=== PATIENT | female | born 2000 | race Caucasian/White ===

== ENCOUNTER 2021-09-05 14:55 | Emergency (ER) | payer OTHER, SELFPAY ==
--- NOTE | 2021-09-05 | ECG_ITS ---
Test Reason : CP Blood Pressure : / mmHG Vent. Rate : 051 BPM Atrial Rate : 051 BPM P-R Int : 130 ms QRS Dur : 082 ms QT Int : 428 ms P-R-T Axes : 065 071 050 degrees QTc Int : 394 ms Sinus bradycardia Otherwise normal ECG No previous ECGs available Referred By: Generic ED Physician Electronically Signed By:KYLE FLORES MD
--- NOTE | ~2021-09-05 | XR_ITS ---
EXAMINATION: XR CHEST CLINICAL INFORMATION: Chest pain COMPARISON: None TECHNIQUE: Frontal view of the chest was obtained. 3:31 PM FINDINGS: No significant abnormality is noted involving the heart, lungs, mediastinum, bony thorax or soft tissues. XR/XR chest 1V IMPRESSION: Unremarkable examination.
[2021-09-05 14:58] VITALS: PULSE 61; RESP 18; TEMP 36.5; O2SAT 99; BMI 18.8
[2021-09-05 17:10] LABS: MANUAL DIFF FLAG NO
[2021-09-05 17:12] LABS: Basophils Percent Auto 0.6 % (0-2); Eosinophils Absolute Auto 0.1 X10*3/uL (0.0-0.4); Eosinophils Percent Auto 2.5 % (0-4); Hematocrit 33.6 % (37.0-47.0); Hemoglobin 10.8 g/dl (12.0-16.0); Imm Gran Abs Auto 0.01 X10*3/uL (0.00-0.03); Imm Gran Pct Auto 0.2 % (0.0-0.4); Lymphocytes Absolute Auto 2.2 X10*3/uL (1.2-4.9); Lymphocytes Percent Auto 42.3 % (20-40); Mean Corpuscular HGB Conc 32.1 g/dl (31.0-35.0); Mean Corpuscular Hemoglobin 26.9 pg (27.0-33.0); Mean Corpuscular Volume 83.8 fL (80.0-98.0); Mean Platelet Volume 10.5 fL (9.4-12.3); Monocytes Absolute Auto 0.5 X10*3/uL (0.1-1.2); Neutrophils Absolute Auto 2.3 x10*3/uL (2.0-8.3); Neutrophils Percent Auto 44.4 % (45-73); Platelet Count 285 X10*3/uL (160-400); Red Blood Count 4.01 X10*6/uL (4.20-5.50); Red Cell Distribution Width 15.2 % (11.0-16.0); White Blood Count 5.2 X10*3/uL (4.8-10.8)
[2021-09-05 17:30] LABS: Alanine Aminotransferase 14 U/L (0-31); Albumin Level 4.2 g/dL (3.5-5.0); Alkaline Phosphatase 71 U/L (39-117); Anion Gap 11 (12-20); Aspartate Amino Transferase 19 U/L (5-31); Bilirubin Total 0.4 mg/dL (0.0-1.0); Blood Urea Nitrogen 7 mg/dL (9-16); Carbon Dioxide 26 mmol/L (22-29); Chloride 109 mmol/L (96-108); Creatinine Clr Calc Pharmacy 89.1; Estimated Glomerular Filt Rate > 60; Glucose Random 89 mg/dL (60-115); Potassium 3.8 mmol/L (3.3-5.1); Sodium 142 mmol/L (135-145); Total Protein 7.6 g/dL (6.5-8.0)
[2021-09-05 17:34] LABS: Troponin-I High Sensitivity < 3.5 ng/L (<3.5-17.0)
--- NOTE | 2021-09-05 19:38 | ED_ITS ---
HPI - Chest Pain General Chief Complaint: Chest Pain <SULEMAN Trejo - Last Filed: 09/05/21 21:07> Stated Complaint: chest pain <SULEMAN Trejo Last Filed: 09/05/21 21:07> Time Seen by Provider: 09/05/21 19:38 <SULEMAN Trejo Last Filed: 09/05/21 21:07> Source: patient <SULEMAN Trejo Last Filed: 09/05/21 21:07> Mode of arrival: ambulatory <SULEMAN Trejo Last Filed: 09/05/21 21:07> Limitations: no limitations <SULEMAN Trejo Last Filed: 09/05/21 21:07> History of Present Illness HPI narrative: This is a 20-year-old female no significant medical history was presenting to the emergency department with episodes of intermittent chest pain over the past week. Patient tells me that these episodes come and go and they seem to be precipitated by stress, at times these episodes are accompanied by shortness of breath however she is not experiencing shortness of breath at this time. She tells me that deep breathing also worsens the chest pain. Patient tells me that she feels like anxiety is a component. She tells me she is under lot of stress she recently got kicked out of her house, she is living in a senior living and she had a miscarriage last week. Patient denies recent illness. Patient has no sig nificant personal or family cardiac history. No history of PE/DVT. Patient is not on control, denies long travel. Denies fevers, chills, nausea, vomiting, abdominal pain, weakness, headache, dizziness, leg pain/swelling <SULEMAN Trejo Last Filed: 09/05/21 21:07> MD complaint: chest pain <SULEMAN Trejo Last Filed: 09/05/21 21:07> Onset (ago): week(s) (1) <SULEMAN Terjo Last Filed: 09/05/21 21:07> Timing of current episode: episodic <SULEMAN Trejo Last Filed: 09/05/21 21:07> Prior episodes: Yes <SULEMAN Trejo - Last Filed: 09/05/21 21:07> Onset: during rest <SULEMAN Trejo - Last Filed: 09/05/21 21:07> Pain location: substernal <SULEMAN Trejo - Last Filed: 09/05/21 21:07> Pain radiation: none <SULEMAN Trejo - Last Filed: 09/05/21 21:07> Severity: moderate <SULEMAN Trejo - Last Filed: 09/05/21 21:07> Quality: sharp <SULEMAN Trejo - Last Filed: 09/05/21 21:07> Relieving factors: nothing <SULEMAN Trejo - Last Filed: 09/05/21 21:07> Exacerbating factors: stress <SULEMAN Trejo - Last Filed: 09/05/21 21:07> Treatment prior to arrival: none <SULEMAN Trejo - Last Filed: 09/05/21 21:07> Related Data Allergies/Adverse Reactions: Allergies Allergy/AdvReac Type Severity Reaction Status Date / Time Unable to Assess Allergy Unverified 09/05/21 19:45 <SULEMAN Trejo - Last Filed: 09/05/21 21:07> Review of Systems Review of Systems: Constitutional : No Weight loss, No Fever, No Chills, No Fatigue, No Malaise ENT/Mouth : No sore throat, No Rhinorrhea Eyes: No Eye Pain, No Swelling, No Redness Cardiovascular : + Chest Pain, No SOB, No Dyspnea on Exertion, No Orthopnea, No Edema, No Palpitations Respiratory : No Cough, No Sputum, No Wheezing Gastrointestinal : No Nausea, No Vomiting, No Diarrhea, No Constipation, No abdominal Pain, No Hematochezia, No Melena Genitourinary : No Dysuria, No Urinary Frequency, No Hematuria, Musculoskeletal : No joint pain, No Myalgias, No Joint Swelling Skin : No Skin Lesions, No rash Neuro : No Weakness, No Numbness, No Dizziness, No Headache Psych : + Anxiety/Panic, No Depression All other systems reviewed and are negative <SULEMAN Trejo - Last Filed: 09/05/21 21:07> Yes all other systems are reviewed and are negative <SULEMAN Trejo - Last Filed: 09/05/21 21:07> [facility] Past Medical History Attestation statement: The following information was validated with the patient. <SULEMAN Trejo - Last Filed: 09/05/21 21:07> Source: old records reviewed and nursing notes reviewed <SULEMAN Trejo - Last Filed: 09/05/21 21:07> Social History Social History: Social History Advance Directives: No Advance Directives Information Provided: No <SULEMAN Trejo - Last Filed: 09/05/21 21:07> Physical Exam Vital Signs: Vital Signs: Last Vital Signs Temp 97.7 F 09/05/21 14:58 Pulse 56 09/05/21 20:56 Resp 16 09/05/21 20:56 BP 105/65 09/05/21 20:56 Pulse Ox 100 09/05/21 20:56 BMI result Body Mass Index 18.8 Vital signs stable <SULEMAN Trejo - Last Filed: 09/05/21 21:07> Appearance: Alert.? Oriented X3.? No acute distress.? Head: Normocephalic, atraumatic, no step-offs or deformities Eyes: Pupils equal, round and reactive to light.? ENT: Pharynx normal.? Neck: Normal inspection.? Neck supple.? CVS: Normal heart rate and rhythm.? Pulses normal.? Respiratory: No respiratory distress.? Breath sounds normal.? Abdomen: Soft and nontender.? Skin: Skin warm and dry.? Normal skin color.? Normal skin turgor.? Extremities: No lower extremity edema.? No calf ttp, neagtive spencer b/l. 5/5 strength to bilateral upper and lower extremities Back: No midline tenderness, no C-spine tenderness, full range of motion, no CVA tenderness bilaterally Neuro: Oriented X 3.? No motor deficit.? No sensory deficit. CN 2-12 intact <SULEMAN Trejo - Last Filed: 09/05/21 21:07> Course Reevaluation(s) Reevaluation #1: CBC with a normocytic anemia. Chemistry with no electrolyte abnormalities requiring intervention. Troponin is negative. EKG shows sinus bradycardia with a rate of 51, no signs of ischemia, unlikely ACS. Chest x-ray is unremarkable. D-dimer pending. <SULEMAN Trejo - Last Filed: 09/05/21 21:07> Time: 19:42 <SULEMAN Trejo - Last Filed: 09/05/21 21:07> Reevaluation #2: D-dimer negative. Unlikely PE/DVT likely anxiety. Wanted to keep the patient here little bit longer for observation however she tells me she has to leave because she has work. At this time chest pain likely secondary to anxiety. Unlikely ACS, PE. Patient will be discharged home with PCP and cardiology follow-up. At this time I feel comfortable discharge home, patient feeling much better at time of discharge with stable vitals. <SULEMAN Trejo Last Filed: 09/05/21 21:07> Time: 21:05 <SULEMAN Trejo - Last Filed: 09/05/21 21:07> MDM - Chest Pain MDM Narrative Medical decision making narrative: 1938 20-year-old female presents the emergency department with complaints of intermittent substernal chest pain that is associated with stressful situations, worsened by deep breathing this has been going on for 1 week worsening. Physical examination benign. Plan at this time is EKG, troponin, basic labs, chest x-ray, dimer This patient is status post miscarriage will obtain a D-dimer to rule out PE although unlikely, at this time patient is PERC negative. Based off history and physical examination very low suspicion for PE, PERC negative. Unlikely that this is ACS however EKG, troponin will be obtained. Likely chest pain secondary to anxiety. <SULEMAN Trejo Last Filed: 09/05/21 21:07> Medical Records Data Attestation: I reviewed the patient's medical records. <SULEMAN Trejo Last Filed: 09/05/21 21:07> Lab Data Attestation: I reviewed the patient's lab results. <SULEMAN Trejo Last Filed: 06/01/22 21:07> Result diagrams: : 09/05/21 17:03 09/05/21 17:03 <SULEMAN Trejo - Last Filed: 09/05/21 21:07> Labs: Lab Results 09/05/21 09/05/21 09/05/21 Range/Units 17:03 17:03 17:03 WBC 5.2 (4.8-10.8) X10*3/uL RBC 4.01 L (4.20-5.50) X10*6/uL Hgb 10.8 L (12.0-16.0) g/dl Hct 33.6 L (37.0-47.0) % MCV 83.8 (80.0-98.0) fL MCH 26.9 L (27.0-33.0) pg MCHC 32.1 (31.0-35.0) g/dl RDW 15.2 (11.0-16.0) % Plt Count 285 (160-400) X10*3/uL MPV 10.5 (9.4-12.3) fL Immature Gran % (Auto) 0.2 (0.0-0.4) % Neut % (Auto) 44.4 L (45-73) % Lymph % (Auto) 42.3 H (20-40) % Mcintosh % (Auto) 10.0 (2-11) % Eos % (Auto) 2.5 (0-4) % Baso % (Auto) 0.6 (0-2) % Lymph # (Auto) 2.2 (1.2-4.9) X10*3/uL Mcintosh # (Auto) 0.5 (0.1-1.2) X10*3/uL Eos # (Auto) 0.1 (0.0-0.4) X10*3/uL Baso # (Auto) 0.0 (0.0-0.2) X10*3/uL Abs Immat Gran (auto) 0.01 (0.00-0.03) X10*3/uL Absolute Neuts (auto) 2.3 (2.0-8.3) x10*3/uL Absolute Nucleated RBC 0.000 (0.0-0.012) X10*3/uL Nucleated RBC % (auto) 0.0 (0.0-0.2) /100WBC D-Dimer High Sensitivty NG/ML Sodium 142 (135-145) mmol/L Potassium 3.8 (3.3-5.1) mmol/L Chloride 109 H (96-108) mmol/L Carbon Dioxide 26 (22-29) mmol/L Anion Gap 11 L (12-20) BUN 7 L (9-16) mg/dL Creatinine 0.80 (0.5-1.4) mg/dL Estim Creat Clear Calc 89.1 Estimated GFR > 60 Random Glucose 89 (60-115) mg/dL Calcium 10.0 (8.4-10.2) mg/dL Total Bilirubin 0.4 (0.0-1.0) mg/dL AST 19 (5-31) U/L ALT 14 (0-31) U/L Alkaline Phosphatase 71 (39-117) U/L Troponin I High Sens < 3.5 (<3.5-17.0) ng/L Total Protein 7.6 (6.5-8.0) g/dL Albumin 4.2 (3.5-5.0) g/dL 09/05/21 Range/Units 20:38 WBC (4.8-10.8) X10*3/uL RBC (4.20-5.50) X10*6/uL Hgb (12.0-16.0) g/dl Hct (37.0-47.0) % MCV (80.0-98.0) fL MCH (27.0-33.0) pg MCHC (31.0-35.0) g/dl RDW (11.0-16.0) % Plt Count (160-400) X10*3/uL MPV (9.4-12.3) fL Immature Gran % (Auto) (0.0-0.4) % Neut % (Auto) (45-73) % Lymph % (Auto) (20-40) % Mcintosh % (Auto) (2-11) % Eos % (Auto) (0-4) % Baso % (Auto) (0-2) % Lymph # (Auto) (1.2-4.9) X10*3/uL Mcintosh # (Auto) (0.1-1.2) X10*3/uL Eos # (Auto) (0.0-0.4) X10*3/uL Baso # (Auto) (0.0-0.2) X10*3/uL Abs Immat Gran (auto) (0.00-0.03) X10*3/uL Absolute Neuts (auto) (2.0-8.3) x10*3/uL Absolute Nucleated RBC (0.0-0.012) X10*3/uL Nucleated RBC % (auto) (0.0-0.2) /100WBC D-Dimer High Sensitivty < 150 NG/ML Sodium (135-145) mmol/L Potassium (3.3-5.1) mmol/L Chloride (96-108) mmol/L Carbon Dioxide (22-29) mmol/L Anion Gap (12-20) BUN (9-16) mg/dL Creatinine (0.5-1.4) mg/dL Estim Creat Clear Calc Estimated GFR Random Glucose (60-115) mg/dL Calcium (8.4-10.2) mg/dL Total Bilirubin (0.0-1.0) mg/dL AST (5-31) U/L ALT (0-31) U/L Alkaline Phosphatase (39-117) U/L Troponin I High Sens (<3.5-17.0) ng/L Total Protein (6.5-8.0) g/dL Albumin (3.5-5.0) g/dL <SULEMAN Trejo - Last Filed: 09/05/21 21:07> ECG Data ECG #1: Attestation: I personally reviewed and interpreted this ECG as follows: <SULEMAN Trejo - Last Filed: 09/05/21 21:07> ECG interpretation date: 09/05/21 <SULEMAN Trejo - Last Filed: 09/05/21 21:07> ECG interpretation time: 19:42 <SULEMAN Trejo - Last Filed: 09/05/21 21:07> Prior ECG tracings: not available for review <SULEMAN Trejo - Last Filed: 09/05/21 21:07> Interpretation: Ventricular rate of 51, [place] normal, QRS normal, QT/QTC normal. EKG shows sinus bradycardia, no ST elevations or inversions concerning for ischemia. No previous EKGs to compare with. <SULEMAN Trejo - Last Filed: 09/05/21 21:07> Critical Care Time Critical Care Time Critical Care Time: No <SULEMAN Trejo Last Filed: 09/05/21 21:07> Discharge Plan Discharge Clinical Impression: Chest pain not due to acute coronary syndrome, Anxiety <SULEMAN Trejo Last Filed: 09/05/21 21:07> Patient Disposition: Home, Self-Care <SULEMAN Trejo Last Filed: 09/05/21 21:07> Instructions: Anxiety (ED), Chest Wall Pain (ED) <SULEMAN Trejo Last Filed: 09/05/21 21:07> Additional Instructions: Take your medications as prescribed. If you were prescribed antibiotics today, it is important that you take your medication to their entirety, do not skip any doses, do not finish them early. Follow-up with your primary care provider this week. If pain continues in the next week or 2, follow-up with Cardiology. Return to the emergency department with new or worsening symptoms. Such as fevers, chills, chest pain, shortness of breath, nausea, vomiting, dizziness, headache, vision changes, lethargy, weakness, leg swelling In case of emergency call 911 <SULEMAN Trejo - Last Filed: 09/05/21 21:07> Referrals: Lucretia Murphy [Primary Care Provider] - 2 days Shaheed Valdez MD [Physician] - 2 weeks <SULEMAN Trejo Last Filed: 09/05/21 21:07> Stand Alone Forms: Work/School Release <SULEMAN Trejo Last Filed: 09/05/21 21:07> Interventions: ED Discharge Assessment Last Done: 09/05/21 21:07 <SULEMAN Trejo Last Filed: 09/05/21 21:07> Discharge Date/Time: 09/05/21 21:08 <SULEMAN Trejo Last Filed: 09/05/21 21:07>
[2021-09-05 20:55] LABS: D Dimer High Sensitivity < 150 NG/ML
[2021-09-05 20:56] VITALS: BP 105/65; PULSE 56; RESP 16; O2SAT 100
== END 2021-09-05 21:08 | disposition home or self-care (01) ==
PROVIDERS: Physician Assistant; Emergency Provider Emergency Medicine; PCP Internal Medicine
DX: R07.9 Chest pain, unspecified (principal); F41.9 Anxiety disorder, unspecified; D64.9 Anemia, unspecified; Z59.01 Sheltered homelessness
CPT/HCPCS: 36415; 71045; 80053; 84484; 85025; 85379; 93005; 99282; 99283

== ENCOUNTER 2022-02-01 15:51 | Emergency (ER) | payer OTHER, SELFPAY ==
--- NOTE | ~2022-02-01 | US_ITS ---
EXAMINATION: US OBSTETRICAL ULTRASOUND CLINICAL INFORMATION: Bleeding 9 weeks COMPARISON: None. Real-time imaging by the pullman car clerk. Findings; The endometrial thickness is measuring approximately 7 mm. Characterized by mixed echogenicity. Some linear increased echogenicity with surrounding decreased echogenicity. There is no convincing evidence for a gestational sac here. The right ovary is 3.5 x 2.6 x 2.4 cm. Left ovary is 3.1 x 1.2 x 1.1 cm. The ovaries appear to be within normal limits. No significant free fluid is identified. US/US OB pelvic and transvaginal IMPRESSION: No evidence of a gestational sac or pole at this time. The endometrial thickness is mixed echogenicity measuring approximately 7 mm.
[2022-02-01 16:00] VITALS: BP 95/62; PULSE 84; RESP 18; TEMP 36.4; O2SAT 99; BMI 18.1
--- NOTE | 2022-02-01 16:31 | ED_ITS ---
HPI - General Chief complaint: Vaginal Bleeding Stated complaint: /blood clots/vomiting Time Seen by Provider: 02/01/22 16:29 Source: patient Mode of arrival: ambulatory Limitations: no limitations History of Present Illness HPI Narrative: 21-year-old female presents for 3 days of vaginal bleeding with blood clots and suprapubic abdominal pain. States to be 9 weeks . She reports going through a pad every 45 minutes. She does not report fevers or chills, adnexal pain, or trauma. MD Complaint: vaginal bleeding Onset (ago): day(s) (3) Pain Consistency: intermittent Location: pelvis Severity: moderate Severity scale (1-10): 5 Quality: Cramping Radiation: pelvis Relieving factors: none Exacerbating factors: movement Associated symptoms: vaginal bleeding and abdominal pain Vaginal discharge: none Vaginal bleeding: light and clots Patient : Yes OB History - Current : no complications OB History - Previous Pregnancies: miscarriage care: followed by OB Related Data : 2 Para: 0 Total number of abortions (spontaneous and elective): 1 Allergies Allergy/AdvReac Type Severity Reaction Status Date / Time Unable to Assess Allergy Unverified 09/05/21 19:45 Review of Systems Review of Systems: Constitutional: No Fever, No Chills ENT/Mouth: No sore throat, No Rhinorrhea Eyes: No Eye Pain, No Redness Cardiovascular: No Chest Pain, No SOB Respiratory: No Cough, No Sputum, No Wheezing Gastrointestinal: positive Nausea, No Vomiting, No Diarrhea, positive abdominal pain Genitourinary: positive irregular bleeding, No Dysuria, No Urinary Frequency, positive pelvic pain Musculoskeletal: No Myalgias Skin: No rash Neuro: No Weakness, No Headache Psych: No Anxiety/Panic, No Depression Heme/Lymph: No bruising, No Lymphadenopathy Endocrine: No Polyuria, No Polydipsia Yes all other systems are reviewed and are negative PMFSH Past Medical History Attestation statement: The following information was validated with the patient. Source: old records reviewed : 2 Para: 0 Total number of abortions (spontaneous and elective): 1 Social History Social History Advance Directives: No Patient : Yes Physical Exam Vital Signs: Vital Signs: Last Vital Signs Temp 98.7 F 02/01/22 19:33 Pulse 63 02/01/22 19:33 Resp 18 02/01/22 19:33 BP 97/59 L 02/01/22 19:33 Pulse Ox 99 02/01/22 19:33 O2 Del Method 02/01/22 19:33 BMI result Body Mass Index 18.1 Appearance: Alert. Oriented X3. No acute distress. Eyes: Pupils equal, round and reactive to light. ENT: Pharynx normal. Neck: Normal inspection. Neck supple. CVS: Normal heart rate and rhythm. Pulses normal. Respiratory: No respiratory distress. Breath sounds normal. Abdomen: Soft and nontender. Skin: Skin warm and dry. Normal skin color. Normal skin turgor. Extremities: No lower extremity edema. Gait well balanced well coordinated. Neuro: No motor deficit. No sensory deficit. Cranial nerves 2-12 intact. Course Course Course Narrative: 21-year-old female presents for evaluation for abnormal vaginal bleeding at 9 weeks of . She has had a prior stillborn, and no other pregnancies. She does not report any trauma, fevers or chills. Her bleeding started 3 days ago, started with cramping and suprapubic abdominal pain. She is going through a pad every 45 minutes. Will order labs, AB0, pelvic ultrasound. 16:45 pelvic exam completed with ED air conditioning technician at bedside as warehouse logistics manager. Patient does not have any cervical motion tenderness, no adnexal tenderness. Scant dark red blood in the vaginal vault. No lesions wounds or abrasions noted. Cervix with healthy, pink, nonfriable. Patient tolerated procedure well. HCG is less than 2, pelvic ultrasound has been canceled. Patient will be discharged home with miscarriage instructions, and follow-up with primary care and/or OBGYN. MDM - OB/Uterine Contractions MDM Narrative Medical decision making narrative: Miscarriage Medical Records Attestation: I reviewed the patient's medical records. Lab Data Attestation: I reviewed the patient's lab results. Result diagrams: 02/01/22 17:06 02/01/22 17:06 Labs: Lab Results 02/01/22 02/01/22 02/01/22 Range/Units 17:06 17:06 17:06 WBC 4.8 (4.8-10.8) X10*3/uL RBC 4.35 (4.20-5.50) X10*6/uL Hgb 12.0 (12.0-16.0) g/dl Hct 36.5 L (37.0-47.0) % MCV 83.9 (80.0-98.0) fL MCH 27.6 (27.0-33.0) pg MCHC 32.9 (31.0-35.0) g/dl RDW 14.8 (11.0-16.0) % Plt Count 258 (160-400) X10*3/uL MPV 10.7 (9.4-12.3) fL Immature Gran % (Auto) 0.6 H (0.0-0.4) % Neut % (Auto) 47.5 (45-73) % Lymph % (Auto) 40.3 H (20-40) % Woods % (Auto) 8.5 (2-11) % Eos % (Auto) 2.3 (0-4) % Baso % (Auto) 0.8 (0-2) % Lymph # (Auto) 2.0 (1.2-4.9) X10*3/uL Woods # (Auto) 0.4 (0.1-1.2) X10*3/uL Eos # (Auto) 0.1 (0.0-0.4) X10*3/uL Baso # (Auto) 0.0 (0.0-0.2) X10*3/uL Abs Immat Gran (auto) 0.03 (0.00-0.03) X10*3/uL Absolute Neuts (auto) 2.3 (2.0-8.3) x10*3/uL Absolute Nucleated RBC 0.000 (0.0-0.012) X10*3/uL Nucleated RBC % (auto) 0.0 (0.0-0.2) /100WBC Sodium 141 (135-145) mmol/L Potassium 3.7 (3.3-5.1) mmol/L Chloride 107 (96-108) mmol/L Carbon Dioxide 25 (22-29) mmol/L Anion Gap 13 (12-20) BUN 6 L (9-16) mg/dL Creatinine 0.77 (0.5-1.4) mg/dL Estim Creat Clear Calc 88.4 Estimated GFR > 60 Random Glucose 75 (60-115) mg/dL Calcium 9.4 (8.4-10.2) mg/dL Beta HCG, Quant < 2 mIU/mL Influenza Type A (PCR) (Negative) Influenza Type B (PCR) (Negative) RSV RNA Qual (PCR) (Negative) SARS-CoV-2 RNA (RT-PCR) (Negative) Blood Type O Positive 02/01/22 Range/Units 17:06 WBC (4.8-10.8) X10*3/uL RBC (4.20-5.50) X10*6/uL Hgb (12.0-16.0) g/dl Hct (37.0-47.0) % MCV (80.0-98.0) fL MCH (27.0-33.0) pg MCHC (31.0-35.0) g/dl RDW (11.0-16.0) % Plt Count (160-400) X10*3/uL MPV (9.4-12.3) fL Immature Gran % (Auto) (0.0-0.4) % Neut % (Auto) (45-73) % Lymph % (Auto) (20-40) % Woods % (Auto) (2-11) % Eos % (Auto) (0-4) % Baso % (Auto) (0-2) % Lymph # (Auto) (1.2-4.9) X10*3/uL Woods # (Auto) (0.1-1.2) X10*3/uL Eos # (Auto) (0.0-0.4) X10*3/uL Baso # (Auto) (0.0-0.2) X10*3/uL Abs Immat Gran (auto) (0.00-0.03) X10*3/uL Absolute Neuts (auto) (2.0-8.3) x10*3/uL Absolute Nucleated RBC (0.0-0.012) X10*3/uL Nucleated RBC % (auto) (0.0-0.2) /100WBC Sodium (135-145) mmol/L Potassium (3.3-5.1) mmol/L Chloride (96-108) mmol/L Carbon Dioxide (22-29) mmol/L Anion Gap (12-20) BUN (9-16) mg/dL Creatinine (0.5-1.4) mg/dL Estim Creat Clear Calc Estimated GFR Random Glucose (60-115) mg/dL Calcium (8.4-10.2) mg/dL Beta HCG, Quant mIU/mL Influenza Type A (PCR) NEGATIVE (Negative) Influenza Type B (PCR) NEGATIVE (Negative) RSV RNA Qual (PCR) NEGATIVE (Negative) SARS-CoV-2 RNA (RT-PCR) NEGATIVE (Negative) Blood Type Discharge Plan Discharge Clinical Impression: Vaginal bleeding, Missed Patient Disposition: Home, Self-Care Instructions: Miscarriage (ED) Additional Instructions: You were evaluated for vaginal bleeding during 1st trimester . You do not have a viable intrauterine at this time. Your influenza COVID RSV tests are negative. Your blood type is O-positive. Please follow-up with primary care and or OBGYN as needed. Thank you for choosing this emergency department for evaluation. Please follow-up with primary care physician as needed. Return to the emergency de partment for any new, concerning, or worsening symptoms. Interventions: ED Discharge Assessment Last Done: 02/01/22 19:38 Discharge Date/Time: 02/01/22 19:40
[2022-02-01 17:13] LABS: MANUAL DIFF FLAG NO
[2022-02-01 17:20] VITALS: BP 107/61; PULSE 63; RESP 18; TEMP 36.4; O2SAT 98
[2022-02-01] MEDS: 0.9 % Sodium Chloride 1,000 ML 999 ML IVCONT (17:27)
[2022-02-01 17:28] LABS: Basophils Percent Auto 0.8 % (0-2); Eosinophils Absolute Auto 0.1 X10*3/uL (0.0-0.4); Eosinophils Percent Auto 2.3 % (0-4); Hematocrit 36.5 % (37.0-47.0); Imm Gran Abs Auto 0.03 X10*3/uL (0.00-0.03); Imm Gran Pct Auto 0.6 % (0.0-0.4); Lymphocytes Percent Auto 40.3 % (20-40); Mean Corpuscular HGB Conc 32.9 g/dl (31.0-35.0); Mean Corpuscular Hemoglobin 27.6 pg (27.0-33.0); Mean Corpuscular Volume 83.9 fL (80.0-98.0); Mean Platelet Volume 10.7 fL (9.4-12.3); Monocytes Absolute Auto 0.4 X10*3/uL (0.1-1.2); Monocytes Percent Auto 8.5 % (2-11); Neutrophils Absolute Auto 2.3 x10*3/uL (2.0-8.3); Neutrophils Percent Auto 47.5 % (45-73); Platelet Count 258 X10*3/uL (160-400); Red Blood Count 4.35 X10*6/uL (4.20-5.50); Red Cell Distribution Width 14.8 % (11.0-16.0); White Blood Count 4.8 X10*3/uL (4.8-10.8)
--- NOTE | 2022-02-01 17:29 | PC.NURSE ---
pt. complaints of vag bleeding with large clots for the past 2 days. 12 weeks . pelvic pain 11/14. BP107/. going to ultrasound. IV in place and NS running
[2022-02-01 17:35] LABS: Anion Gap 13 (12-20); Blood Urea Nitrogen 6 mg/dL (9-16); Calcium 9.4 mg/dL (8.4-10.2); Carbon Dioxide 25 mmol/L (22-29); Chloride 107 mmol/L (96-108); Creatinine Clr Calc Pharmacy 88.4; Estimated Glomerular Filt Rate > 60; Glucose Random 75 mg/dL (60-115); Potassium 3.7 mmol/L (3.3-5.1); Sodium 141 mmol/L (135-145)
[2022-02-01 17:43] LABS: HCG Quantitative < 2 mIU/mL
[2022-02-01 17:59] LABS: Influenza A PCR NEGATIVE (Negative); Influenza B PCR NEGATIVE (Negative); Resp Syncy Virus RNA Qual PCR NEGATIVE (Negative); SARS COV2 PCR INHOUSE NEGATIVE (Negative)
[2022-02-01 18:36] VITALS: BP 105/67; PULSE 59; RESP 16; TEMP 37; O2SAT 100
[2022-02-01] MEDS: diphenhydrAMINE HCL 50 MG/ML VIAL 12.5 MG IVPUSH (19:05)
[2022-02-01] MEDS: Metoclopramide HCl 10 MG/2 ML VIAL IVPUSH (19:05)
[2022-02-01 19:33] VITALS: BP 97/59; PULSE 63; RESP 18; TEMP 37.1; O2SAT 99
[2022-02-02 05:03] LABS: CT PCR NOT DETECTED (Not Detect.); NG PCR NOT DETECTED (Not Detect.)
[2022-02-02 15:04] LABS: BV Int Neg Control Negative (Negative); BV Int Pos Control Positive (Positive)
== END 2022-02-01 19:40 | disposition home or self-care (01) ==
PROVIDERS: Nurse Practitioner Family; Emergency Provider Emergency Medicine; PCP Internal Medicine
DX: O02.1 Missed abortion (principal); Z20.822 Contact with and (suspected) exposure to COVID-19; Z79.899 Other long term (current) drug therapy
CPT/HCPCS: 0241U; 36415; 76801; 76817; 80048; 84702; 85025; 86900; 86901; 87480; 87491; 87510; 87591; 87660; 96361; 96374; 96375; 99284; J1200; J2765

== ENCOUNTER 2022-03-15 02:54 | Emergency (ER) | payer OTHER, SELFPAY ==
[2022-03-15 02:57] VITALS: BP 139/79; PULSE 97; RESP 20; TEMP 36.7; O2SAT 100; BMI 19.7
== END 2022-03-15 06:05 | disposition left against medical advice (07) ==
PROVIDERS: Emergency Provider Emergency Medicine
DX: R06.02 Shortness of breath (principal)
CPT/HCPCS: 99281

== ENCOUNTER 2022-04-23 20:14 | Emergency (ER) | payer OTHER, SELFPAY ==
[2022-04-23 20:56] VITALS: BP 95/52; PULSE 90; RESP 16; TEMP 36.3; O2SAT 99; BMI 18.3
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
[2022-04-23] MEDS: Ibuprofen 600 MG TABLET PO (23:47)
[2022-04-23] MEDS: Silver Sulfadiazine 1 % Cream 20 GM TUBE 1 APPL TOPICAL (23:48)
== END 2022-04-24 | disposition home or self-care (01) ==
PROVIDERS: Emergency Provider Internal Medicine
DX: T23.112A Burn of first degree of left thumb (nail), initial encounter (principal); T31.0 Burns involving less than 10% of body surface; T79.9XXA Unspecified early complication of trauma, initial encounter; X12.XXXA Contact with other hot fluids, initial encounter; Y93.9 Activity, unspecified; Y92.9 Unspecified place or not applicable; Y99.9 Unspecified external cause status
CPT/HCPCS: 16000; 99283

== ENCOUNTER 2022-08-22 17:47 | Emergency (ER) | payer OTHER, SELFPAY ==
--- NOTE | ~2022-08-22 | US_ITS ---
EXAMINATION: US ABDOMEN LIMITED CLINICAL INFORMATION: 15 weeks with right upper quadrant pain.. COMPARISON: None available. TECHNIQUE: Real-time imaging of the right upper quadrant abdominal viscera. FINDINGS: GALLBLADDER: The gallbladder is contracted as patient is not fasting. COMMON BILE DUCT: Normal in caliber measuring 0.2 cm in diameter. US/US abdomen limited IMPRESSION: Contracted gallbladder. No echogenic stones or wall thickening seen. Please note patient is nonfasting.
--- NOTE | ~2022-08-22 | US_ITS ---
EXAMINATION: US OB LIMITED CLINICAL INFORMATION: Lower abdominal pain. 15 weeks . Evaluate for a heart rate and motion. COMPARISON: No relevant prior examinations available for this current . TECHNIQUE: Grayscale and cine images were obtained. FINDINGS: Single intrauterine gestation identified. A heart rate is seen measuring approximately 167 BPM. There is normal motion of the fetus during the examination. US/US OB limited IMPRESSION: Single intrauterine gestation with a heart rate of 167 BPM. Normal motion.
[2022-08-22 18:12] VITALS: BP 105/63; PULSE 69; RESP 18; TEMP 36.9; O2SAT 100; BMI 18.0
[2022-08-22 18:27] LABS: MANUAL DIFF FLAG NO
[2022-08-22 18:31] LABS: Appearance Urine Clear; Color Urine Yellow; Glucose Urine UA Negative (Negative); Leukocyte Esterase Urine Negative (Negative); Nitrite Urine Negative (Negative); PH 6.5 (5.0-9.0); Specific Gravity - Urine 1.025 (1.005-1.025); Urine Blood Negative (Negative); Urine Ketones Negative (Negative); Urine Protein Negative (Neg-Trace)
[2022-08-22 18:31] LABS: Basophils Percent Auto 0.5 % (0-2); Eosinophils Absolute Auto 0.1 X10*3/uL (0.0-0.4); Eosinophils Percent Auto 1.8 % (0-4); Hematocrit 34.6 % (37.0-47.0); Hemoglobin 11.7 g/dl (12.0-16.0); Imm Gran Abs Auto 0.01 X10*3/uL (0.00-0.03); Imm Gran Pct Auto 0.2 % (0.0-0.4); Lymphocytes Absolute Auto 1.7 X10*3/uL (1.2-4.9); Lymphocytes Percent Auto 27.6 % (20-40); Mean Corpuscular HGB Conc 33.8 g/dl (31.0-35.0); Mean Corpuscular Hemoglobin 28.7 pg (27.0-33.0); Mean Platelet Volume 10.4 fL (9.4-12.3); Monocytes Absolute Auto 0.5 X10*3/uL (0.1-1.2); Monocytes Percent Auto 7.6 % (2-11); Neutrophils Absolute Auto 3.8 x10*3/uL (2.0-8.3); Neutrophils Percent Auto 62.3 % (45-73); Platelet Count 200 X10*3/uL (160-400); Red Blood Count 4.07 X10*6/uL (4.20-5.50)
--- NOTE | 2022-08-22 18:36 | ED.FEMALEGU ---
HPI - Female Genitourinary General Chief complaint: Urogenital-Female <SULEMAN Trejo - Last Filed: 08/22/22 18:41> Stated complaint: 15weeks /abd pain/rib pain <SULEMAN Trejo - Last Filed: 08/22/22 18:41> Time Seen by Provider: 08/22/22 19:12 <SULEMAN Trejo - Last Filed: 08/22/22 18:41> Source: patient and family (Spouse) <Martha Guadarrama MD - Last Filed: 08/22/22 21:11> Mode of arrival: ambulatory <Martha Guadarrama MD - Last Filed: 08/22/22 21:11> Limitations: no limitations <Martha Guadarrama MD - Last Filed: 08/22/22 21:11> History of Present Illness HPI Narrative: 21-year-old female presents to the emergency department currently 15 weeks was recommended to come in for evaluation by [facility], for an ultrasound and basic labs. Patient reports intermittent upper abdominal pain and cramps mostly in the right side, not related to food. No fevers or chills, nausea, vomiting. <Martha Guadarrama MD - Last Filed: 08/22/22 21:11> Related Data Home medications: Previous Rx's Medication Instructions Recorded metronidazole 500 mg tablet 500 mg PO Q12H 7 days #14 tabs 02/04/22 silver sulfadiazine 1 % topical 1 appl topical BID #50 grams 04/23/22 cream (SSD) <SULEMAN Trejo - Last Filed: 08/22/22 18:41> Allergies/Adverse reactions: Allergies Allergy/AdvReac Type Severity Reaction Status Date / Time No Known Allergies Allergy Verified 03/15/22 03:00 <SULEMAN Trejo - Last Filed: 08/22/22 18:41> Review of Systems Review of Systems: All other systems are reviewed and are negative Constitutional: Reports as per HPI and Reports no additional constitutional complaints Eyes: Reports as per HPI and Reports no additional eye complaints Reports system reviewed and no additional complaints, except as documented Cardiovascular: Reports as per HPI and Reports no additional cardiovascular complaints Respiratory: Reports as per HPI and Reports no additional respiratory complaints Gastrointestinal: Reports as per HPI and Reports no additional gastrointestinal complaints Genitourinary: Reports no additional female genitourinary complaints Musculoskeletal: Reports no additional musculoskeletal complaints Skin/Breast: Reports system reviewed and no additional complaints, except as docu Psychiatric: Reports no additional psychiatric complaints Endocrine: Reports no additional endocrine complaints Hematologic/Lymphatic: Reports no additional hematologic/lymphatic complaints Allergic/Immunologic: Reports no additional allergic/immunologic complaints Reports system reviewed and no additional complaints, except as documented and Reports Abnormal speech present <Martha Guadarrama MD - Last Filed: 08/22/22 21:11> [facility] Social History Social History: Social History Advance Directives: No Advance Directives Information Provided: No <SULEMAN Trejo - Last Filed: 08/22/22 18:41> Physical Exam Vital Signs: Vital Signs: Last Vital Signs Temp 98.7 F 08/22/22 19:25 Pulse 100 08/22/22 19:25 Resp 16 08/22/22 19:25 BP 107/56 L 08/22/22 19:25 Pulse Ox 97 08/22/22 19:25 O2 Del Method Room Air 08/22/22 19:25 BMI result Body Mass Index 18.0 <SULEMAN Trejo - Last Filed: 08/22/22 18:41> Vital Signs: Last Vital Signs Temp 98.7 F 08/22/22 19:25 Pulse 100 08/22/22 19:25 Resp 16 08/22/22 19:25 BP 107/56 L 08/22/22 19:25 Pulse Ox 97 08/22/22 19:25 O2 Del Method Room Air 08/22/22 19:25 BMI result Body Mass Index 18.0 Vital signs have been reviewed as appeared to be correct. Blood pressure normal. Heart rate normal. Respiration rate normal. Temperature normal. Oxygen saturation normal. <Martha Guadarrama MD - Last Filed: 08/22/22 21:11> Appearance: Alert. Oriented X3. No acute distress. Head: Normal external exam. Normocephalic. Atraumatic. No Carrington signs noted. No raccoon eyes noted Eyes: PERRLA. EOMI. Conjunctiva and sclera normal. Eyelids normal. ENT: TM's Normal. Pharynx normal. Uvula midline. Moist mucous membranes. No trismus noted. No drooling noted. No muffled voice noted. Neck: Normal inspection. Neck supple. FROM. No adenopathy. Thyroid Normal. No meningeal signs. No neck mass noted. CVS: Normal heart rate and rhythm. Heart sound normal. No murmurs noted. Pulses normal throughout. Respiratory: No respiratory distress. Painless inspiration. Breath sounds normal. No wheezes/rales/rhonchi noted. Chest nontender. No accessory muscle usage noted or decreased air movement noted. Abdomen: Soft and nontender. Bowel sounds normal in all 4 quadrants. No distention noted. No organomegaly noted. No visible injury noted. Back: No CVA tenderness. Full range of motion noted. Skin: Skin warm and dry. Normal skin color. Normal skin turgor. No rashes/lesions/lacerations noted. Extremities: No lower extremity edema. Extremities exhibit normal range of motion. Extremities nontender. Neuro: Oriented X 3. Cranial nerve exam: II-XII are grossly intact No motor deficit. No sensory deficit. Reflexes normal. <Martha Guadarrama MD - Last Filed: 08/22/22 21:11> Course Course Course Narrative: This is an RME: Additional HPI, ROS, PE not included below will be deferred to primary provider. 21-year-old female presents to the emergency department currently 16 weeks was recommended to come in for evaluation by [facility], for an ultrasound of basic labs. Patient reports constant suprapubic pressure, urinary frequency and dysuria. No fevers or chills, nausea, vomiting. normal to date. plan labs, urine, ultrasound <SULEMAN Trejo - Last Filed: 08/22/22 18:41> This is an RME: Additional HPI, ROS, PE not included below will be deferred to primary provider. plan labs, urine, ultrasound <Martha Guadarrama MD - Last Filed: 08/22/22 21:11> Reevaluation(s) Reevaluation #1: 21-year-old female presented with abdominal pain mostly in right upper quadrant, patient has a normal LFTs and normal gallbladder ultrasound. Pelvic ultrasound showing 1 IUP, patient is O-positive, benign exam no abdominal tenderness or rebound tenderness, will discharge to follow-up with instrument checker. <Martha Guadarrama MD - Last Filed: 08/22/22 21:11> Medical Decision Making Differential Diagnosis Differential Diagnoses: The differential diagnosis associated with the presentation includes (Gallbladder disease, elevated LFTs, electrolyte abnormalities, severe anemia, elevate complication, rule out Rh negative type, UTI.) <Martha Guadarrama MD - Last Filed: 08/22/22 21:11> Lab Data MDM Lab Attestation statement: I reviewed the patient's lab results. <Martha Guadarrama MD - Last Filed: 08/22/22 21:11> Result Diagrams: 08/22/22 18:22 08/22/22 18:22 <SULEMAN Trejo - Last Filed: 08/22/22 18:41> Labs: Lab Results 08/22/22 08/22/22 08/22/22 Range/Units 18:22 18:22 18:23 WBC 6.0 (4.8-10.8) X10*3/uL RBC 4.07 L (4.20-5.50) X10*6/uL Hgb 11.7 L (12.0-16.0) g/dl Hct 34.6 L (37.0-47.0) % MCV 85.0 (80.0-98.0) fL MCH 28.7 (27.0-33.0) pg MCHC 33.8 (31.0-35.0) g/dl RDW 14.0 (11.0-16.0) % Plt Count 200 (160-400) X10*3/uL MPV 10.4 (9.4-12.3) fL Immature Gran % (Auto) 0.2 (0.0-0.4) % Neut % (Auto) 62.3 (45-73) % Lymph % (Auto) 27.6 (20-40) % [place] % (Auto) 7.6 (2-11) % Eos % (Auto) 1.8 (0-4) % Baso % (Auto) 0.5 (0-2) % Lymph # (Auto) 1.7 (1.2-4.9) X10*3/uL [place] # (Auto) 0.5 (0.1-1.2) X10*3/uL Eos # (Auto) 0.1 (0.0-0.4) X10*3/uL Baso # (Auto) 0.0 (0.0-0.2) X10*3/uL Abs Immat Gran (auto) 0.01 (0.00-0.03) X10*3/uL Absolute Neuts (auto) 3.8 (2.0-8.3) x10*3/uL Absolute Nucleated RBC 0.000 (0.0-0.012) X10*3/uL Nucleated RBC % (auto) 0.0 (0.0-0.2) /100WBC Sodium 137 (135-145) mmol/L Potassium 3.8 (3.3-5.1) mmol/L Chloride 106 (96-108) mmol/L Carbon Dioxide 23 (22-29) mmol/L Anion Gap 12 (12-20) BUN 8 L (9-16) mg/dL Creatinine 0.69 (0.5-1.4) mg/dL Estim Creat Clear Calc 100.6 Estimated GFR > 60 Random Glucose 82 (60-115) mg/dL Calcium 9.6 (8.4-10.2) mg/dL Magnesium 1.8 (1.6-2.6) mg/dL Total Bilirubin 0.4 (0.0-1.0) mg/dL AST 15 (5-31) U/L ALT 6 (0-31) U/L Alkaline Phosphatase 50 (39-117) U/L Total Protein 6.7 (6.5-8.0) g/dL Albumin 3.9 (3.5-5.0) g/dL Beta HCG, Quant 02680 mIU/mL Urine Color Yellow Urine Appearance Clear Urine pH 6.5 (5.0-9.0) Ur Specific [place] 1.025 (1.005-1.025) Urine Protein Negative (Neg-Trace) mg/dL Urine Glucose (UA) Negative (Negative) mg/dL Urine Ketones Negative (Negative) mg/dL Urine Blood Negative (Negative) Urine Nitrite Negative (Negative) Ur Leukocyte Esterase Negative (Negative) <SULEMAN Trejo - Last Filed: 08/22/22 18:41> Lab Results 08/22/22 08/22/22 08/22/22 Range/Units 18:22 18:22 18:23 WBC 6.0 (4.8-10.8) X10*3/uL RBC 4.07 L (4.20-5.50) X10*6/uL Hgb 11.7 L (12.0-16.0) g/dl Hct 34.6 L (37.0-47.0) % MCV 85.0 (80.0-98.0) fL MCH 28.7 (27.0-33.0) pg MCHC 33.8 (31.0-35.0) g/dl RDW 14.0 (11.0-16.0) % Plt Count 200 (160-400) X10*3/uL MPV 10.4 (9.4-12.3) fL Immature Gran % (Auto) 0.2 (0.0-0.4) % Neut % (Auto) 62.3 (45-73) % Lymph % (Auto) 27.6 (20-40) % [place] % (Auto) 7.6 (2-11) % Eos % (Auto) 1.8 (0-4) % Baso % (Auto) 0.5 (0-2) % Lymph # (Auto) 1.7 (1.2-4.9) X10*3/uL [place] # (Auto) 0.5 (0.1-1.2) X10*3/uL Eos # (Auto) 0.1 (0.0-0.4) X10*3/uL Baso # (Auto) 0.0 (0.0-0.2) X10*3/uL Abs Immat Gran (auto) 0.01 (0.00-0.03) X10*3/uL Absolute Neuts (auto) 3.8 (2.0-8.3) x10*3/uL Absolute Nucleated RBC 0.000 (0.0-0.012) X10*3/uL Nucleated RBC % (auto) 0.0 (0.0-0.2) /100WBC Sodium 137 (135-145) mmol/L Potassium 3.8 (3.3-5.1) mmol/L Chloride 106 (96-108) mmol/L Carbon Dioxide 23 (22-29) mmol/L Anion Gap 12 (12-20) BUN 8 L (9-16) mg/dL Creatinine 0.69 (0.5-1.4) mg/dL Estim Creat Clear Calc 100.6 Estimated GFR > 60 Random Glucose 82 (60-115) mg/dL Calcium 9.6 (8.4-10.2) mg/dL Magnesium 1.8 (1.6-2.6) mg/dL Total Bilirubin 0.4 (0.0-1.0) mg/dL AST 15 (5-31) U/L ALT 6 (0-31) U/L Alkaline Phosphatase 50 (39-117) U/L Total Protein 6.7 (6.5-8.0) g/dL Albumin 3.9 (3.5-5.0) g/dL Beta HCG, Quant 20710 mIU/mL Urine Color Yellow Urine Appearance Clear Urine pH 6.5 (5.0-9.0) Ur Specific [place] 1.025 (1.005-1.025) Urine Protein Negative (Neg-Trace) mg/dL Urine Glucose (UA) Negative (Negative) mg/dL Urine Ketones Negative (Negative) mg/dL Urine Blood Negative (Negative) Urine Nitrite Negative (Negative) Ur Leukocyte Esterase Negative (Negative) <Martha Guadarrama MD - Last Filed: 08/22/22 21:11> Independent Interpretation I performed an independent interpretation of an: Ultrasound (Abdomen/pelvis: Uncomplicated , normal gallbladder.) <Martha Guadarrama MD - Last Filed: 08/22/22 21:11> Radiology Impression Discussion of test interpretation with radiology: I have reviewed the radiologist's reading. <Martha Guadarrama MD - Last Filed: 08/22/22 21:11> Discharge Plan Discharge Clinical Impression: Abdominal pain during <SULEMAN Trejo - Last Filed: 08/22/22 18:41> Patient Disposition: Home, Self-Care <SULEMAN Trejo - Last Filed: 08/22/22 18:41> Instructions: Abdominal Pain in (ED) <SULEMAN Trejo - Last Filed: 08/22/22 18:41> Additional Instructions: Follow-up with your bow maker gift wrapping/instrument checker. <SULEMAN Trejo - Last Filed: 08/22/22 18:41> Prescriptions: No Action metronidazole 500 mg tablet 500 mg PO Q12H 7 Days Qty: 14 0RF silver sulfadiazine [SSD] 1 % cream 1 appl topical BID Qty: 50 0RF Rx Instructions: apply a 1.5 mm thickness <SULEMAN Trejo - Last Filed: 08/22/22 18:41>
[2022-08-22 18:49] LABS: Alanine Aminotransferase 6 U/L (0-31); Albumin Level 3.9 g/dL (3.5-5.0); Alkaline Phosphatase 50 U/L (39-117); Anion Gap 12 (12-20); Aspartate Amino Transferase 15 U/L (5-31); Bilirubin Total 0.4 mg/dL (0.0-1.0); Blood Urea Nitrogen 8 mg/dL (9-16); Calcium 9.6 mg/dL (8.4-10.2); Carbon Dioxide 23 mmol/L (22-29); Chloride 106 mmol/L (96-108); Creatinine Clr Calc Pharmacy 100.6; Estimated Glomerular Filt Rate > 60; Glucose Random 82 mg/dL (60-115); Magnesium 1.8 mg/dL (1.6-2.6); Potassium 3.8 mmol/L (3.3-5.1); Sodium 137 mmol/L (135-145); Total Protein 6.7 g/dL (6.5-8.0)
[2022-08-22 19:23] LABS: HCG Quantitative 88747 mIU/mL
[2022-08-22 19:25] VITALS: BP 107/56; PULSE 100; RESP 16; TEMP 37.1; O2SAT 97
== END 2022-08-22 21:30 | disposition home or self-care (01) ==
PROVIDERS: Physician Assistant; Emergency Provider Emergency Medicine
DX: O26.892 Other specified pregnancy related conditions, second trimester (principal); R10.11 Right upper quadrant pain; Z3A.15 15 weeks gestation of pregnancy
CPT/HCPCS: 36415; 76705; 76815; 80053; 81003; 83735; 84702; 85025; 99283; 99284

== ENCOUNTER 2022-10-21 17:25 | Emergency (ER) | payer OTHER, SELFPAY ==
--- NOTE | ~2022-10-21 | US_ITS ---
Examination: Ultrasound OB limited. CLINICAL INDICATION: 24 weeks with abdominal pain left lower quadrant. COMPARISON: Ultrasound OB 08/22/2022. TECHNIQUE: Transabdominal imaging of pelvis is performed. FINDINGS: There is a single live intrauterine fetus with posterior placenta grade 2 and fetus in breech presentation. heart rate is 140 bpm. On the last exam the heart rate was 167 bpm. The femoral length measures 3.727 corresponding to 21 weeks 6 days. Ventilation was not performed. No lesions seen in the uterus. The left ovary is visualized and measures 2.1 x 1.1 x 1.0 cm and appears unremarkable. The right ovary measures 1.6 x 1.2 x 1.3 cm. There is no free fluid. US/US OB limited IMPRESSION: Single live intrauterine fetus in breech presentation. The placenta is posterior grade 2. No abnormality seen in the uterus or the ovaries.
[2022-10-21 18:57] VITALS: BP 103/61; PULSE 85; RESP 16; TEMP 36.4; O2SAT 100; BMI 20.3
--- NOTE | 2022-10-21 18:59 | ED.GENADULT ---
HPI - General Adult General Chief complaint: General Medical Stated complaint: cant eat/ drink. 24 weeks preg. cant stand? Related Data Previous Rx's Medication Instructions Recorded metronidazole 500 mg tablet 500 mg PO Q12H 7 days #14 tabs 02/04/22 silver sulfadiazine 1 % topical 1 appl topical BID #50 grams 04/23/22 cream (SSD) Allergies Allergy/AdvReac Type Severity Reaction Status Date / Time No Known Allergies Allergy Verified 03/15/22 03:00 [facility] Social History Social History Advance Directives: No Advance Directives Information Provided: No Physical Exam ED Vital Signs: BMI result Body Mass Index 20.3 Course Course Course Narrative: This is an RME: Additional HPI, ROS, PE not included below will be deferred to primary provider. This is a [id number]-female, who is 24 weeks presenting to the ER with complaints of weakness, abdominal cramping, and decreased appetite x 4 days. +Nausea, no vomiting. Pt is currently being [facility] by [facility] in [place]. Reevaluation(s) Reevaluation #1: Patient eloped prior to being fully evaluated. Medical Decision Making Lab Data 10/21/22 19:38 10/21/22 19:37 Labs: Lab Results 10/21/22 10/21/22 10/21/22 Range/Units 18:23 19:37 19:38 WBC 6.8 (4.8-10.8) X10*3/uL RBC 3.90 L (4.20-5.50) X10*6/uL Hgb 11.8 L (12.0-16.0) g/dl Hct 35.3 L (37.0-47.0) % MCV 90.5 (80.0-98.0) fL MCH 30.3 (27.0-33.0) pg MCHC 33.4 (31.0-35.0) g/dl RDW 14.3 (11.0-16.0) % Plt Count 165 (160-400) X10*3/uL MPV 10.8 (9.4-12.3) fL Immature Gran % (Auto) 1.2 H (0.0-0.4) % Neut % (Auto) 79.9 H (45-73) % Lymph % (Auto) 10.2 L (20-40) % [place] % (Auto) 8.0 (2-11) % Eos % (Auto) 0.1 (0-4) % Baso % (Auto) 0.6 (0-2) % Lymph # (Auto) 0.7 L (1.2-4.9) X10*3/uL [place] # (Auto) 0.5 (0.1-1.2) X10*3/uL Eos # (Auto) 0.0 (0.0-0.4) X10*3/uL Baso # (Auto) 0.0 (0.0-0.2) X10*3/uL Abs Immat Gran (auto) 0.08 H (0.00-0.03) X10*3/uL Absolute Neuts (auto) 5.4 (2.0-8.3) x10*3/uL Absolute Nucleated RBC 0.000 (0.0-0.012) X10*3/uL Nucleated RBC % (auto) 0.0 (0.0-0.2) /100WBC Sodium 136 (135-145) mmol/L Potassium 3.5 (3.3-5.1) mmol/L Chloride 109 H (96-108) mmol/L Carbon Dioxide 16 L (22-29) mmol/L Anion Gap 15 (12-20) BUN 5 L (9-16) mg/dL Creatinine 0.64 (0.5-1.4) mg/dL Estim Creat Clear Calc 118.4 Estimated GFR > 60 Random Glucose 90 (60-115) mg/dL Calcium 9.5 (8.4-10.2) mg/dL Magnesium 1.8 (1.6-2.6) mg/dL Total Bilirubin 0.9 (0.0-1.0) mg/dL Direct Bilirubin 0.3 (0.0-0.5) mg/dL AST 17 (5-31) U/L ALT 11 (0-31) U/L Alkaline Phosphatase 71 (39-117) U/L Total Protein 7.4 (6.5-8.0) g/dL Albumin 3.7 (3.5-5.0) g/dL Urine Color Yellow Urine Appearance Clear Urine pH 6.5 (5.0-9.0) Ur Specific [place] 1.015 (1.005-1.025) Urine Protein Negative (Neg-Trace) mg/dL Urine Glucose (UA) Negative (Negative) mg/dL Urine Ketones Negative (Negative) mg/dL Urine Blood Negative (Negative) Urine Nitrite Negative (Negative) Ur Leukocyte Esterase Negative (Negative) Discharge Plan Discharge Clinical Impression: Abdominal pain during Patient Disposition: Elopement Prescriptions: No Action metronidazole 500 mg tablet 500 mg PO Q12H 7 Days Qty: 14 0RF silver sulfadiazine [SSD] 1 % cream 1 appl topical BID Qty: 50 0RF Rx Instructions: apply a 1.5 mm thickness Interventions: ED Discharge Assessment Last Done: 10/21/22 22:28 Discharge Date/Time: 10/21/22 22:28
--- NOTE | 2022-10-21 19:41 | MHC.EDTECH ---
PATIENT BLOOD DRAWN AND URINE SAMPLE COLLECTED AND SENT TO LAB .
[2022-10-21 19:42] LABS: MANUAL DIFF FLAG NO
[2022-10-21 19:44] LABS: Basophils Percent Auto 0.6 % (0-2); Eosinophils Percent Auto 0.1 % (0-4); Hematocrit 35.3 % (37.0-47.0); Hemoglobin 11.8 g/dl (12.0-16.0); Imm Gran Abs Auto 0.08 X10*3/uL (0.00-0.03); Imm Gran Pct Auto 1.2 % (0.0-0.4); Lymphocytes Absolute Auto 0.7 X10*3/uL (1.2-4.9); Lymphocytes Percent Auto 10.2 % (20-40); Mean Corpuscular HGB Conc 33.4 g/dl (31.0-35.0); Mean Corpuscular Hemoglobin 30.3 pg (27.0-33.0); Mean Corpuscular Volume 90.5 fL (80.0-98.0); Mean Platelet Volume 10.8 fL (9.4-12.3); Monocytes Absolute Auto 0.5 X10*3/uL (0.1-1.2); Neutrophils Absolute Auto 5.4 x10*3/uL (2.0-8.3); Neutrophils Percent Auto 79.9 % (45-73); Platelet Count 165 X10*3/uL (160-400); Red Cell Distribution Width 14.3 % (11.0-16.0); White Blood Count 6.8 X10*3/uL (4.8-10.8)
[2022-10-21 19:45] LABS: Appearance Urine Clear; Color Urine Yellow; Glucose Urine UA Negative (Negative); Leukocyte Esterase Urine Negative (Negative); Nitrite Urine Negative (Negative); PH 6.5 (5.0-9.0); Specific Gravity - Urine 1.015 (1.005-1.025); Urine Blood Negative (Negative); Urine Ketones Negative (Negative); Urine Protein Negative (Neg-Trace)
[2022-10-21 20:04] LABS: Alanine Aminotransferase 11 U/L (0-31); Albumin Level 3.7 g/dL (3.5-5.0); Alkaline Phosphatase 71 U/L (39-117); Anion Gap 15 (12-20); Aspartate Amino Transferase 17 U/L (5-31); Bilirubin Direct 0.3 mg/dL (0.0-0.5); Bilirubin Total 0.9 mg/dL (0.0-1.0); Blood Urea Nitrogen 5 mg/dL (9-16); Calcium 9.5 mg/dL (8.4-10.2); Carbon Dioxide 16 mmol/L (22-29); Chloride 109 mmol/L (96-108); Creatinine Clr Calc Pharmacy 118.4; Estimated Glomerular Filt Rate > 60; Glucose Random 90 mg/dL (60-115); Magnesium 1.8 mg/dL (1.6-2.6); Potassium 3.5 mmol/L (3.3-5.1); Sodium 136 mmol/L (135-145); Total Protein 7.4 g/dL (6.5-8.0)
== END 2022-10-21 22:28 | disposition left against medical advice (07) ==
PROVIDERS: Physician Assistant Medical; Emergency Provider Emergency Medicine
DX: O26.892 Other specified pregnancy related conditions, second trimester (principal); R10.32 Left lower quadrant pain; Z3A.21 21 weeks gestation of pregnancy
CPT/HCPCS: 36415; 76815; 80048; 80076; 81003; 83735; 85025; 99282; 99284